=== PATIENT | female | born 1985 | race African-American/Black ===

== ENCOUNTER 2023-10-06 06:36 | Emergency (ER) | payer OTHER ==
[2023-10-06 06:57] VITALS: PULSE 92; BMI 48.2
[2023-10-06] MEDS: SODIUM CHLORIDE 1,000 ML IV STA (08:15)
[2023-10-06] MEDS: ACETAMINOPHEN 1000 MG/100 ML BAG IVPB ONE (08:15)
[2023-10-06] MEDS ORDERED: ACETAMINOPHEN INJECTION 100 ML IVPB ONE (08:15)
[2023-10-06] MEDS ORDERED: ALBUTEROL SO4 2.5/IPRATROPIUM 0.5 INH SOL 3 ML VIAL.NEB. NEB SCH (08:30)
[2023-10-06 09:09] LABS: INR 1.22 (0.83-1.09)
[2023-10-06 09:12] LABS: ACTIVATED PTT 38.1 SECONDS (25.2-36.5)
[2023-10-06 09:14] LABS: BASO % 0.7 % (0-2.0); EOS % 3.4 % (0-4.5); HEMATOCRIT 41.9 % (32.4-45.2); LYMPH % 28.9 % (8-40); MCH 27.8 pg (25.7-33.7); MCHC 33.3 g/dl (32.0-36.0); MEAN CELL VOLUME 83.4 fl (80-96); MEAN PLT VOLUME 8.9 fl (7.5-11.1); MONO % 19.2 % (3.8-10.2); NEUT % 47.8 % (42.8-82.8); PLATELET COUNT 296 10^3/uL (134-434); RBC 5.03 M/mm3 (3.60-5.2); RDW 13.8 % (11.6-15.6); WHITE BLOOD COUNT 5.9 K/mm3 (4.0-10.0)
[2023-10-06 09:19] LABS: POTASSIUM 3.7 mmol/L (3.5-5.1)
[2023-10-06 09:21] LABS: ALBUMIN 3.4 g/dl (3.4-5.0); CALCIUM 9.1 mg/dL (8.5-10.1)
[2023-10-06 09:24] LABS: CREATININE 0.9 mg/dL (0.55-1.3)
[2023-10-06 09:26] LABS: BILIRUBIN,TOTAL 0.2 mg/dL (0.2-1)
[2023-10-06 09:48] LABS: THROAT:GRP A STREP NOT DETECTED (NOTDETECTED)
[2023-10-06 11:35] VITALS: BP 114/69; RESP 18; TEMP 98.6
== END 2023-10-06 11:41 | disposition home or self-care (01) ==
LOC: JER 06:36
PROC: 3E033NZ Introduction of Analgesics, Hypnotics, Sedatives into Peripheral Vein, Percutaneous Approach (ICD-10-PCS; principal; 2023-10-06)
PROC: 3E0337Z Introduction of Electrolytic and Water Balance Substance into Peripheral Vein, Percutaneous Approach (ICD-10-PCS; 2023-10-06)
DX: R50.9 Fever, unspecified (principal); R53.83 Other fatigue; R51.9 Headache, unspecified; R42 Dizziness and giddiness; R09.81 Nasal congestion; J02.9 Acute pharyngitis, unspecified; R05.9 Cough, unspecified; R07.9 Chest pain, unspecified; R06.02 Shortness of breath; R63.0 Anorexia; M79.10 Myalgia, unspecified site; R19.7 Diarrhea, unspecified; R53.1 Weakness; R00.0 Tachycardia, unspecified; J34.89 Other specified disorders of nose and nasal sinuses; Z20.822 Contact with and (suspected) exposure to COVID-19
CPT/HCPCS: 0241U-QW; 36415; 71046-TC-FY; 80053; 84484; 84703; 85025; 85610; 85730; 87651; 93005; 93010; 99285-25; J0131